=== PATIENT | male | born 2000 | race African-American/Black ===

== ENCOUNTER 2018-08-20 20:00 | Emergency (ER) | payer MEDICAID ==
[~2018-08-20] VITALS: Ht 177.8 cm; Wt 87.1 kg
[2018-08-20 20:18] VITALS: BP 153/98
== END 2018-08-21 00:32 | disposition left against medical advice (07) ==
LOC: ER 20:07
DX: R22.41 Localized swelling, mass and lump, right lower limb (principal); Z53.21 Procedure and treatment not carried out due to patient leaving prior to being seen by health care provider

== ENCOUNTER 2018-12-13 08:06 | Emergency (ER) | payer MEDICAID ==
[~2018-12-13] VITALS: Ht 177.8 cm; Wt 87.1 kg
[2018-12-13] MEDS ORDERED: IBUPROFEN 600 MG TAB PO ONE (08:15)
[2018-12-13 09:02] VITALS: BP 136/76
[2018-12-13] MEDS ORDERED: cefTRIAXone SOD 1,000 MG VL IM ONE (09:45)
== END 2018-12-13 10:13 | disposition home or self-care (01) ==
LOC: ER 08:06
DX: J03.90 Acute tonsillitis, unspecified (principal); J06.9 Acute upper respiratory infection, unspecified
CPT/HCPCS: 71046; 96372; 99283; J0696